=== PATIENT | male | born 1990 | race African-American/Black ===

== ENCOUNTER 2017-02-12 14:42 | Emergency (ER) | payer OTHER ==
[~2017-02-12 14:42] MED LIST: CEPH500C3 PO; PRED50 PO; SULF-154 PO; VENTAER INH; Z.0.NO CURRENT MEDS
[2017-02-12 14:43] VITALS: BP 134/88; PULSE 70; RESP 12; TEMP 97.8; O2SAT 100
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
[2017-02-12] MEDS ORDERED: ROBA500T PO (15:59)
== END 2017-02-12 16:41 | disposition home or self-care (01) ==
LOC: NEPD 14:42
DX: S13.4XXA Sprain of ligaments of cervical spine, initial encounter (principal); J45.909 Unspecified asthma, uncomplicated; V47.6XXA Car passenger injured in collision with fixed or stationary object in traffic accident, initial encounter; Z79.899 Other long term (current) drug therapy
CPT/HCPCS: 99283